=== PATIENT | female | born 1975 | race Caucasian/White ===

== ENCOUNTER → 2016-08-15 | Outpatient (CLI) | payer OTHER ==
[2016-08-15 08:12] LABS: HEMOGLOBIN 12.1 gm/dl (12.3-15.3); RED BLOOD COUNT 5.45 M/UL (4.00-5.10); WHITE BLOOD COUNT 10.3 K/UL (4.5-11.0)
[2016-08-15 08:20] LABS: BUN/CREATININE RATIO 18 (0-10)
== END ==
LOC: LAB 07:13
PROVIDERS: Physician Assistant
DX: Z13.220 Encounter for screening for lipoid disorders (principal); E11.9 Type 2 diabetes mellitus without complications; Z02.89 Encounter for other administrative examinations; Z79.899 Other long term (current) drug therapy
CPT/HCPCS: 36415; 80053; 80061; 82043; 82570; 83036; 84439; 84443; 85025

== ENCOUNTER → 2016-10-03 | Outpatient (CLI) | payer OTHER | LOC: OPSV 09:20 → LAB 09:20 | DX: E03.9 Hypothyroidism, unspecified (principal) | CPT/HCPCS: 36415; 84439; 84443 ==

== ENCOUNTER → 2020-07-03 | Outpatient (CLI) | payer OTHER ==
[2020-07-03 09:34] LABS: HEMOGLOBIN 14.9 gm/dl (12.3-15.3); RED BLOOD COUNT 5.48 M/UL (4.00-5.10); WHITE BLOOD COUNT 9.7 K/UL (4.5-11.0)
[2020-07-03 09:54] LABS: BUN/CREATININE RATIO 12 (0-10)
[2020-07-04 07:10] LABS: VITAMIN D, 25-HYDROXY 17.6 ng/mL (30.0-100.0)
[2020-07-04 09:12] LABS: ESTRADIOL 94.1 pg/mL (.)
== END ==
LOC: LAB 08:40
PROVIDERS: Internal Medicine
DX: N92.6 Irregular menstruation, unspecified (principal); E11.9 Type 2 diabetes mellitus without complications; R53.83 Other fatigue; E78.5 Hyperlipidemia, unspecified; I10 Essential (primary) hypertension; E03.9 Hypothyroidism, unspecified; E55.9 Vitamin D deficiency, unspecified; D64.9 Anemia, unspecified; Z79.899 Other long term (current) drug therapy
CPT/HCPCS: 36415; 80053; 80061; 82607; 82670; 82728; 82746; 83001; 83002; 83036; 83540; 83550; 84439; 84443; 85025

== ENCOUNTER → 2020-07-30 | Outpatient (CLI) | payer OTHER | LOC: MAMO 08:22 | DX: Z12.31 Encounter for screening mammogram for malignant neoplasm of breast (principal) | CPT/HCPCS: 77063; 77067 ==

== ENCOUNTER → 2021-02-23 | Outpatient (CLI) | payer OTHER ==
[2021-02-23 10:08] LABS: HEMOGLOBIN 15.3 gm/dl (12.3-15.3); RED BLOOD COUNT 5.3 M/UL (4.00-5.10); WHITE BLOOD COUNT 9.1 K/UL (4.5-11.0)
[2021-02-23 10:32] LABS: BUN/CREATININE RATIO 22 (0-10)
[2021-02-24 11:14] LABS: CREATININE, URINE 75.8 mg/dL (Not Estab.)
== END ==
LOC: LAB 09:09
PROVIDERS: Internal Medicine
DX: E11.9 Type 2 diabetes mellitus without complications (principal); I10 Essential (primary) hypertension; D64.9 Anemia, unspecified; E78.5 Hyperlipidemia, unspecified; E55.9 Vitamin D deficiency, unspecified; D51.8 Other vitamin B12 deficiency anemias; Z79.899 Other long term (current) drug therapy
CPT/HCPCS: 36415; 80053; 80061; 82043; 82570; 82607; 82728; 82746; 83036; 83540; 83550; 84439; 84443; 85025

== ENCOUNTER → 2021-08-27 | Outpatient (CLI) | payer OTHER ==
[2021-08-27 08:31] LABS: HEMOGLOBIN 15.4 gm/dl (12.3-15.3); RED BLOOD COUNT 5.56 M/UL (4.00-5.10); WHITE BLOOD COUNT 11.5 K/UL (4.5-11.0)
[2021-08-27 09:07] LABS: BUN/CREATININE RATIO 18 (0-10); GAMMA GLUTAMYL TRANSPEPTIDASE 47 U/L (7-64)
[2021-08-28 08:15] LABS: CREATININE, URINE 61.3 mg/dL (Not Estab.); MICROALB/CREAT RATIO <5 (0-29); VITAMIN D, 25-HYDROXY 28.3 ng/mL (30.0-100.0)
[2021-08-30 12:11] LABS: A/G RATIO 0.7 (0.7-1.7); ALBUMIN 2.4 g/dL (2.9-4.4); ALPHA-1-GLOBULIN 0.3 g/dL (0.0-0.4); ALPHA-2-GLOBULIN 1.2 g/dL (0.4-1.0); BETA GLOBULIN 1.4 g/dL (0.7-1.3); GLOBULIN, TOTAL 3.9 g/dL (2.2-3.9); IMMUNOGLOBULIN A, QN, SERUM 229 mg/dL (87-352); IMMUNOGLOBULIN G, QN, SERUM 933 mg/dL (586-1602); IMMUNOGLOBULIN M, QN, SERUM 43 mg/dL (26-217); M-SPIKE Not Observed g/dL (Not Observed); PROTEIN, TOTAL, SERUM 6.3 g/dL (6.0-8.5)
== END ==
LOC: LAB 07:40
PROVIDERS: Internal Medicine
DX: D64.9 Anemia, unspecified (principal); R77.0 Abnormality of albumin; E11.9 Type 2 diabetes mellitus without complications; E78.5 Hyperlipidemia, unspecified; I10 Essential (primary) hypertension; R94.5 Abnormal results of liver function studies; M25.50 Pain in unspecified joint; D51.8 Other vitamin B12 deficiency anemias; E55.9 Vitamin D deficiency, unspecified
CPT/HCPCS: 36415; 80053; 80061; 82043; 82570; 82607; 82728; 82746; 82784; 82977; 83036; 83540; 83550; 84155; 84165; 84439; 84443; 85025; 86038; 86334; 86335

== ENCOUNTER → 2021-11-09 | Outpatient (CLI) | payer OTHER | LOC: MAMO 10-12 10:00 | DX: Z12.31 Encounter for screening mammogram for malignant neoplasm of breast (principal); R74.8 Abnormal levels of other serum enzymes; K76.9 Liver disease, unspecified | CPT/HCPCS: 76700; 77063; 77067 ==

== ENCOUNTER → 2021-11-25 | Outpatient (CLI) | payer OTHER | LOC: MAMO 10:00 | DX: R92.8 Other abnormal and inconclusive findings on diagnostic imaging of breast (principal) | CPT/HCPCS: 76641-LT; 77065; G0279 ==

== ENCOUNTER → 2021-12-17 | Outpatient (CLI) | payer OTHER | LOC: CT 12-09 15:30 | DX: K76.9 Liver disease, unspecified (principal); K76.0 Fatty (change of) liver, not elsewhere classified | CPT/HCPCS: 36415; 74170; 82565; 84520; Q9967 ==